=== PATIENT | female | born 1945 | race Caucasian/White ===

== ENCOUNTER 2024-03-17 19:35 | Inpatient (IN) | payer OTHER ==
[~2024-03-17] VITALS: Ht 160 cm; Wt 46.1 kg
[2024-03-17] MEDS ORDERED: NO HOME MEDS (22:53)
[2024-03-17 22:57] LABS: BASOPHILS # (AUTO) 0.1 X10'3 (0-0.2); BASOPHILS % (AUTO) 0.7 % (0-1); EOSINOPHILS # (AUTO) 0.1 X10'3 (0-0.9); EOSINOPHILS % (AUTO) 0.3 % (0-6); HEMATOCRIT 40.3 % (35.0-45.0); LYMPHOCYTES # (AUTO) 1.7 X10'3 (1.1-4.8); LYMPHOCYTES % (AUTO) 9.5 % (21-51); MEAN CORPUSCULAR HEMOGLOBIN 28.1 PG (27.0-31.0); MEAN CORPUSCULAR HGB CONC 32.1 g/dL (33.0-36.5); MEAN CORPUSCULAR VOLUME 87.5 FL (78-98); MEAN PLATELET VOLUME 7.5 FL (7.4-10.4); MONOCYTES # (AUTO) 0.8 X10'3 (0-0.9); MONOCYTES % (AUTO) 4.4 % (2-12); NEUTROPHILS # (AUTO) 15.6 X10'3 (1.8-7.7); NEUTROPHILS % (AUTO) 85.1 % (42-75); PLATELET COUNT 306 X10'3 (140-440); RED BLOOD COUNT 4.61 X10'6 (4.20-5.60); RED CELL DISTRIBUTION WIDTH 14.3 % (11.5-14.5); WHITE BLOOD COUNT 18.4 X10'3 (4.5-11.0)
[2024-03-17 23:10] LABS: APTT 25 SECONDS (22-32); PROTHROMBIN TIME 10.8 SECONDS (9.0-12.0)
[2024-03-17 23:11] LABS: ALANINE AMINOTRANSFERASE 34 U/L (12-78); ALBUMIN 3.6 G/DL (3.4-5.0); ALKALINE PHOSPHATASE 85 IU/L (46-116); ANION GAP 10 (8-16); ASPARTATE AMINO TRANSFERASE 17 U/L (10-37); BILIRUBIN,TOTAL 0.5 MG/DL (0.1-1.0); BLOOD UREA NITROGEN 27 MG/DL (7-18); CALCIUM 9.8 MG/DL (8.5-10.1); CHLORIDE 103 MMOL/L (99-107); CREATININE 1.04 MG/DL (0.40-0.90); GLUCOSE 136 MG/DL (70-104); POTASSIUM 3.5 MMOL/L (3.5-5.1); SODIUM 141 MMOL/L (135-145); TOTAL CARBON DIOXIDE 28.5 MMOL/L (24-32); TOTAL PROTEIN 7.1 G/DL (6.4-8.2); eCRCL 33 ML/MIN; eGFR 51 ML/MIN
[2024-03-17] MEDS: HYDROcodone/acetaminophen 5mg/325mg tablet PO ONE (23:25)
[2024-03-17] MEDS: ondansetron/PF 4mg/2ml inj IV ONE (23:26)
[2024-03-17] MEDS: normal saline 1000ml 1,000 ML IV ONE (23:26)
[2024-03-17] MEDS ORDERED: potassium Cl 40MEQ/1/2NS 520ml 520 ML IV PRN (23:30)
[2024-03-17] MEDS ORDERED: acetaminophen 325mg tablet PO PRN (23:30)
[2024-03-17] MEDS ORDERED: mag hydrox/Alum hydrox/simeth 30ml oral suspension PO PRN (23:30)
[2024-03-17] MEDS ORDERED: HYDROcodone/acetaminophen 5mg/325mg tablet PO PRN (23:30)
[2024-03-17] MEDS ORDERED: magnesium Cl slow-release 64mg tablet PO PRN (23:30)
[2024-03-17] MEDS ORDERED: potassium Cl 20 mEq SR tablet PO PRN ×2 (23:30)
[2024-03-17] MEDS ORDERED: ondansetron/PF 4mg/2ml inj IV PRN (23:30)
[2024-03-17] MEDS ORDERED: magnesium hydroxide 30ml (MOM) UD suspension PO PRN (23:30)
[2024-03-17] MEDS ORDERED: magnesium sulf-water 4G/100mL 100 ML IV PRN (23:30)
[2024-03-17] MEDS ORDERED: magnesium sulf-water 2g/50mL 50 ML IV PRN (23:30)
[2024-03-18] VITALS (26 sets, daily range): BP systolic 113–164; BP diastolic 59–100; PULSE 66–88; RESP 11–16; TEMP 97–98.5; O2SAT 90–100
[2024-03-18] MEDS: normal saline 1000ml 1,000 ML IV SCH (00:17)
[2024-03-18 05:51] LABS: BASOPHILS % (AUTO) 0.3 % (0-1); EOSINOPHILS % (AUTO) 0.3 % (0-6); HEMATOCRIT 35.7 % (35.0-45.0); HEMOGLOBIN 11.7 g/dl (12.0-16.0); LYMPHOCYTES # (AUTO) 1.8 X10'3 (1.1-4.8); LYMPHOCYTES % (AUTO) 14.8 % (21-51); MEAN CORPUSCULAR HEMOGLOBIN 28.8 PG (27.0-31.0); MEAN CORPUSCULAR HGB CONC 32.8 g/dL (33.0-36.5); MEAN CORPUSCULAR VOLUME 87.8 FL (78-98); MEAN PLATELET VOLUME 7.7 FL (7.4-10.4); MONOCYTES # (AUTO) 0.5 X10'3 (0-0.9); NEUTROPHILS % (AUTO) 80.6 % (42-75); PLATELET COUNT 252 X10'3 (140-440); RED BLOOD COUNT 4.07 X10'6 (4.20-5.60); RED CELL DISTRIBUTION WIDTH 14.2 % (11.5-14.5); WHITE BLOOD COUNT 12.4 X10'3 (4.5-11.0)
[2024-03-18 06:19] LABS: ALANINE AMINOTRANSFERASE 19 U/L (12-78); ALBUMIN 2.9 G/DL (3.4-5.0); ALBUMIN/GLOBULIN RATIO 0.9 (1.1-1.5); ALKALINE PHOSPHATASE 67 IU/L (46-116); ANION GAP 8 (8-16); ASPARTATE AMINO TRANSFERASE 13 U/L (10-37); BILIRUBIN,TOTAL 0.5 MG/DL (0.1-1.0); BLOOD UREA NITROGEN 25 MG/DL (7-18); BUN/CREATININE RATIO 30.5 (10.0-20.0); CALCIUM 8.7 MG/DL (8.5-10.1); CHLORIDE 107 MMOL/L (99-107); CREATININE 0.82 MG/DL (0.40-0.90); GLUCOSE 103 MG/DL (70-104); MAGNESIUM 1.7 MG/DL (1.5-2.4); POTASSIUM 3.8 MMOL/L (3.5-5.1); SODIUM 143 MMOL/L (135-145); TOTAL CARBON DIOXIDE 28.4 MMOL/L (24-32); eCRCL 42 ML/MIN; eGFR 68 ML/MIN
[2024-03-18] MEDS: K and/or MAG REPLACEMENT MC SCH (08:00)
[2024-03-18] MEDS: nicotine 14mg patch - 24hr TD SCH (08:00)
[2024-03-18] MEDS: docusate sod 100mg capsule PO SCH (08:00)
[2024-03-18] MEDS ORDERED: hydrALAZINE 20mg/ml inj. IV PRN (13:20)
[2024-03-18] MEDS ORDERED: morphine 2 MG/ML inj. syringe IV PRN (13:20)
[2024-03-18] MEDS ORDERED: labetalol 20mg/4ml (5mg/ml) syringe IV PRN (13:20)
[2024-03-18] MEDS ORDERED: meperidine/PF 25mg/ml syringe IV PRN ×3 (13:20)
[2024-03-18] MEDS ORDERED: ondansetron/PF 4mg/2ml inj IV PRN (13:20)
[2024-03-18] MEDS ORDERED: morphine 4 MG/ML inj SYRINge IV PRN (13:20)
[2024-03-18] MEDS ORDERED: proCHLORperazine 10 MG/2 ml inj IV PRN (13:20)
[2024-03-18] MEDS ORDERED: sevoflurane 250ml liquid IH ONE (13:23)
[2024-03-18] MEDS ORDERED: midazolam 1 mg/ML 2ml injection ONE (13:29)
[2024-03-18] MEDS ORDERED: morphine 4 MG/ML inj SYRINge ONE (13:39)
[2024-03-18] MEDS ORDERED: 0.9 % SODIUM CHLORIDE 10 ML VIAL ONE (13:50)
[2024-03-18] MEDS ORDERED: dexamethasone sod phosphate 4mg/ml inj. ONE (13:50)
[2024-03-18] MEDS ORDERED: propofol inj 20 ML IV ONE (13:50)
[2024-03-18] MEDS ORDERED: LIDOcaine 2% (20mg/ml) 5ml vial ONE (13:50)
[2024-03-18] MEDS ORDERED: ceFAZolin 1000mg inj ONE ×2 (13:50)
[2024-03-18] MEDS ORDERED: ePHEDrine 50MG/ML INJ. ONE (13:50)
[2024-03-18] MEDS ORDERED: ROPIVAcaine 0.5% (5mg/ml) 30ml vial ONE (13:51)
[2024-03-18] MEDS ORDERED: ondansetron/PF 4mg/2ml inj ONE (13:51)
[2024-03-18] MEDS: acetaminophen 1,000mg/100ml IV 100 ML IV ONE (15:28)
[2024-03-18] MEDS: BUPIVAcaine/PF 2.5mg/ml (0.25%) 10ml vial ONE (18:00)
[2024-03-18] MEDS: ringers solution, lacted 1,000 ML IV SCH (18:38)
[2024-03-18] MEDS: enoxaparin 40mg/0.4ml syringe SQ SCH (21:41)
[2024-03-19 05:44] LABS: BASOPHILS % (AUTO) 0.1 % (0-1); EOSINOPHILS % (AUTO) 0 % (0-6); HEMATOCRIT 32.5 % (35.0-45.0); HEMOGLOBIN 10.9 g/dl (12.0-16.0); LYMPHOCYTES # (AUTO) 1.2 X10'3 (1.1-4.8); LYMPHOCYTES % (AUTO) 14.2 % (21-51); MEAN CORPUSCULAR HEMOGLOBIN 29.7 PG (27.0-31.0); MEAN CORPUSCULAR HGB CONC 33.7 g/dL (33.0-36.5); MEAN CORPUSCULAR VOLUME 88.1 FL (78-98); MEAN PLATELET VOLUME 8.6 FL (7.4-10.4); MONOCYTES # (AUTO) 0.4 X10'3 (0-0.9); MONOCYTES % (AUTO) 4.6 % (2-12); NEUTROPHILS # (AUTO) 6.6 X10'3 (1.8-7.7); NEUTROPHILS % (AUTO) 81.1 % (42-75); PLATELET COUNT 214 X10'3 (140-440); RED BLOOD COUNT 3.69 X10'6 (4.20-5.60); RED CELL DISTRIBUTION WIDTH 14.2 % (11.5-14.5); WHITE BLOOD COUNT 8.1 X10'3 (4.5-11.0)
[2024-03-19 05:54] LABS: ALANINE AMINOTRANSFERASE 14 U/L (12-78); ALBUMIN 2.6 G/DL (3.4-5.0); ALBUMIN/GLOBULIN RATIO 0.8 (1.1-1.5); ALKALINE PHOSPHATASE 60 IU/L (46-116); ANION GAP 11 (8-16); ASPARTATE AMINO TRANSFERASE 12 U/L (10-37); BILIRUBIN,TOTAL 0.4 MG/DL (0.1-1.0); BLOOD UREA NITROGEN 22 MG/DL (7-18); BUN/CREATININE RATIO 33.3 (10.0-20.0); CALCIUM 8.7 MG/DL (8.5-10.1); CHLORIDE 109 MMOL/L (99-107); CREATININE 0.66 MG/DL (0.40-0.90); GLUCOSE 133 MG/DL (70-104); MAGNESIUM 1.9 MG/DL (1.5-2.4); POTASSIUM 3.8 MMOL/L (3.5-5.1); SODIUM 144 MMOL/L (135-145); TOTAL CARBON DIOXIDE 24.3 MMOL/L (24-32); TOTAL PROTEIN 5.7 G/DL (6.4-8.2); eCRCL 52 ML/MIN; eGFR 87 ML/MIN
[2024-03-19 06:00] VITALS: BP 128/66; PULSE 59; RESP 18; TEMP 97.6; O2SAT 95
[2024-03-19 10:00] VITALS: BP 138/66; PULSE 67; RESP 18; TEMP 97.8; O2SAT 95
== END 2024-03-19 17:30 | disposition home or self-care (01) | DRG 480 ==
LOC: ER 19:35 → ED HOLD 23:32 → EDBEDREQ 03-18 00:33 → ORTHO 4S 03-18 00:55
PROVIDERS: ADMIT Surgery; ATTEND Nurse Practitioner Family
PROC: 0QH734Z Insertion of Internal Fixation Device into Left Upper Femur, Percutaneous Approach (ICD-10-PCS; principal; 2024-03-18 13:23)
DX: M80.052A Age-related osteoporosis with current pathological fracture, left femur, initial encounter for fracture (principal); E43 Unspecified severe protein-calorie malnutrition; N17.0 Acute kidney failure with tubular necrosis; Z68.1 Body mass index [BMI] 19.9 or less, adult; F19.10 Other psychoactive substance abuse, uncomplicated; K21.9 Gastro-esophageal reflux disease without esophagitis; E86.0 Dehydration; N18.9 Chronic kidney disease, unspecified; D64.9 Anemia, unspecified; Z66 Do not resuscitate; S72.092A Other fracture of head and neck of left femur, initial encounter for closed fracture; W18.39XA Other fall on same level, initial encounter; Y93.89 Activity, other specified; Y92.89 Other specified places as the place of occurrence of the external cause; Y99.8 Other external cause status
CPT/HCPCS: 36415; 71045; 72192; 73502; 73522; 76000; 80053; 83735; 84132; 85025; 85610; 85730; 87081; 93005; 96374; 97110; 97116; 97161; 97530; 99291; A4615; A4618; A6258; A7000; C1713; G0378; J0131; J0690; J0735; J1100; J1650; J2250; J2270; J2405; J2704; J2795; J3490; J7030